=== PATIENT | female | born 1945 | race Caucasian/White ===

== ENCOUNTER 2017-01-24 12:55 | Emergency (ER) | payer OTHER ==
--- NOTE | 2017-01-24 13:13 | PDOC ---
Attending Attestation - Resident Resident Name: Katerin Bowers - ED Attending Attestation I have performed the following: I have examined & evaluated the patient, The case was reviewed & discussed with the resident, I agree w/resident's findings & plan, Exceptions are as noted - HPI HPI: 01/24/17 14:29 71y F hx of breast ca s/p mastectomy, hx of hernia repair s/p mesh removal 10 days ago presents with wound dehisence starting approx 5 days ago - pt endorses some serosangeonous discharge, denies purulence, fever, chills, abd pain, vomiting, nausea. pt had d/w [employer] CLAIM[employer] EXAMINER at her surgical practice who said it didnt appear infected a few days ago, but pt prsented due to increasing dehicense. - Physicial Exam PE: 01/24/17 14:30 abdomen: large abd wound with epitheliaized borders, mild erythema on proximal/ medial border without significant induration or warmth, no pus visible. abd otherwise soft, nontender w/o rebound/guarding. +tenderness on lateral edge of wound (c/w since day of surgery) - Medical Decision Making 01/24/17 14:32 wound dehicsence no signfiicant infection mild erythema at borders - likely inflammatory rather than infecitious will ck labs wound culture sent will peter guerra regarding fu 01/24/17 15:22 labs unremarkble p requesting to leave will fu with dr. guerra and his office as outpatient discussed importance of following up with dr. guerra or his collegues return precautions were disucssed
--- NOTE | 2017-01-24 13:29 | PDOC ---
History of Present Illness - General Chief Complaint: Wound Stated Complaint: SURGICAL WOUND IS OPEN Time Seen by Provider: 01/24/17 12:56 History Source: Patient Exam Limitations: No Limitations - History of Present Illness Initial Comments: This is a 71 yo female with h/o wound-healing difficulty (required abdominal skin graft and hyperbaric therapy for chronic non-healing abdominal surgical incision decades ago. She is POD #10 from abdominal mesh removal and presents with wound dehiscence of her surgical incision, with increased tenderness and odorous/purulent drainage from the wound. The dissolvable sutures broke open about 7 days ago and the wound has been opening more since that time. The patient saw her primary care provider two days ago regarding these symptoms, and the provider called her surgeon who said that the patient can come to the city to see him on Wednesday if needed. The patient has not had fever, chills, nausea, vomiting, headache, dizziness/lightheadedness, chest pain, shortness of breath, or other recent symptoms. Past History - Past Medical History Allergies/Adverse Reactions: Allergies Allergy/AdvReac Type Severity Reaction Status Date / Time Penicillins Allergy Intermediate ORAL SORES Verified 01/24/17 13:00 cephalexin monohydrate Allergy Unknown Verified 01/24/17 13:00 [From Keflex] ciprofloxacin [From Cipro] Allergy Unknown Verified 01/24/17 13:00 ciprofloxacin HCl Allergy Unknown Verified 01/24/17 13:00 [From Cipro] lactose Allergy Unknown Verified 01/24/17 13:00 sulfamethoxazole Allergy Unknown Verified 01/24/17 14:41 [From Bactrim] trimethoprim [From Bactrim] Allergy Unknown Verified 01/24/17 14:41 aspirin AdvReac Intermediate BACK PAIN Verified 01/24/17 13:00 ibuprofen AdvReac Intermediate BACK PAIN Verified 01/24/17 13:00 NSAIDS (Non-Steroidal AdvReac Intermediate Verified 01/24/17 13:00 Anti-Inflamma Home Medications: Ambulatory Orders Atenolol [Tenormin] 50 mg PO 01/24/17 Desloratadine [Clarinex] 5 mg PO DAILY 01/24/17 Hydroxyzine HCl [Atarax -] 10 mg PO BID 01/24/17 Lansoprazole [Prevacid] 30 mg PO DAILY 01/24/17 Propylthiouracil 50 mg PO DAILY 01/24/17 Tramadol HCl [Ultram] 50 mg PO DAILY 01/24/17 Triamterene/Hydrochlorothiazid [Triamterene-Hctz 37.5-25 mg Tb] 1.5 each PO DAILY 01/24/17 Ubidecarenone/Vitamin E [Co Q-10 50 mg Softgel] 1 each PO DAILY 01/24/17 Review of Systems - Review of Systems Constitutional: No: Chills, Fever, Unexplained wgt Loss HEENTM: No: Nose Congestion, Throat Pain Respiratory: No: Cough, Shortness of Breath Cardiac (ROS): No: Chest Pain, Palpitations ABD/GI: Yes: Other (abdominal pain). No: Constipated, Diarrhea, Nausea, Vomiting : No: Burning, Dysuria Musculoskeletal: No: Back Pain, Neck Pain Integumentary: Yes: Other (open surgical wound with drainage). No: Bruising, Rash Neurological: No: Headache, Numbness, Tingling, Weakness, Dizziness Endocrine: No: Unexplained Weight Gain, Unexplained Weight Loss *Physical Exam - Physical Exam General Appearance: Yes: Nourished, Appropriately Dressed, Other (pleasant older woman with supportive at bedside, conversive and appropriately answering questions). No: Apparent Distress HEENT: positive: EOMI, Normal Voice, Hearing Grossly Normal. negative: Scleral Icterus (R), Scleral Icterus (L), Nasal Congestion Neck: positive: Trachea midline, Supple. negative: Tender, Rigid Respiratory/Chest: positive: Lungs Clear, Normal Breath Sounds. negative: Respiratory Distress, Crackles, Rhonchi, Stridor, Wheezing Cardiovascular: positive: Regular Rhythm, Regular Rate. negative: Murmur Gastrointestinal/Abdominal: positive: Normal Bowel Sounds, Tender (surrounding 7x4 cm dehiscent surgical wound just to the right of the umbilicus), Soft. negative: Organomegaly, Pulsatile Mass, Guarding Musculoskeletal: positive: Normal Inspection. negative: Decreased Range of Motion, Vertebral Tenderness Extremity: positive: Normal Capillary Refill, Normal Inspection, Normal Range of Motion. negative: Tender, Cyanosis Integumentary: positive: Normal Color, Dry, Warm, Other (7x4 cm full-thickness open dehiscent surgical wound with small amount of purulent drainage which is not malodorous, small amount of erythema surrounding wound edges). negative: Rash, Bruising Neurologic: positive: continuous improvement lead II-XII NML intact, Fully Oriented, Alert, Normal Mood/ Affect, Normal Response, Motor Strength 09/18 ED Treatment Course - LABORATORY CBC & Chemistry Diagram: 01/24/17 13:34 01/24/17 13:34 Medical Decision Making - Medical Decision Making 71 YOF with wound healing difficulties p/w dehiscent surgical wound from procedure 10 days ago. Now with reported yellow purulent malodorous drainage, increased wound tenderness. No fever, chills, nausea, lightheadedness, or other systemic signs. This is possibly a wound infection. The patient may have other chronic undiagnosed wound healing problems such as PVD or hypogammaglobulinemia. Ordered is wound culture, CBCD, CMP. 01/24/17 14:17 WBC not elevated, CBCD otherwise unremarkable. CMP without significant findings. Called to Dr. Tariq's clinic. *DC/Admit/Observation/Transfer Diagnosis at time of Disposition: Dehiscence of wound - Discharge Dispostion Disposition: HOME Condition at time of disposition: Good Admit: No - Patient Instructions Printed Discharge Instructions: DI for Wound Dehiscence Additional Instructions: You were seen today for your surgical wound opening up and for some drainage. We did some basic blood work which was normal. We also took a wound culture and the results will come back in the next day or two. We are getting in touch with your surgeon's office to let them know that you need to be seen early this week. Please call your surgeon's office tomorrow morning to set up an appointment. Return to the ED for any fever, chills, worsened pain, increased pus from the wound, or other new/worsening symptoms.
[2017-01-24 13:38] VITALS: BP 172/66; PULSE 79; TEMP 98.5; BMI 29.0
[2017-01-24 13:48] LABS: BASOPHIL 1.3 % (0-2.0); EOSINOPHIL 1.2 % (0-4.5); MCH 26.4 pg (25.7-33.7); MCHC 33.6 g/dl (32.0-36.0); MEAN CELL VOLUME 78.6 fl (80-96); MEAN PLT VOLUME 7.5 fl (7.5-11.1); NEUTROPHILS 60.9 % (42.8-82.8); PLATELET COUNT 272 K/MM3 (134-434); RDW 13.3 % (11.6-15.6); WHITE BLOOD COUNT 7.3 K/mm3 (4.0-10.8)
[2017-01-24 14:07] LABS: ALBUMIN 3.7 g/dl (3.5-5.0); ALK PHOS 75 U/L (32-92); ANION GAP 10 (8-16); BILIRUBIN,TOTAL 0.6 mg/dl (0.2-1.0); CALCIUM 11.1 mg/dl (8.4-10.2); CO2 27 mmol/L (22-28); CREATININE 0.7 mg/dl (0.6-1.3); GLUCOSE,RANDOM 97 mg/dl (74-106); SGOT/AST 22 U/L (10-42); SGPT/ALT 20 U/L (10-40); TOT PROT 7.5 g/dl (6.4-8.3)
== END 2017-01-24 15:03 | disposition home or self-care (01) ==
LOC: FER 12:55
DX: T81.31XA Disruption of external operation (surgical) wound, not elsewhere classified, initial encounter (principal); Y83.9 Surgical procedure, unspecified as the cause of abnormal reaction of the patient, or of later complication, without mention of misadventure at the time of the procedure; Z85.3 Personal history of malignant neoplasm of breast; Z90.10 Acquired absence of unspecified breast and nipple; Z88.0 Allergy status to penicillin; Z88.1 Allergy status to other antibiotic agents; Z88.6 Allergy status to analgesic agent
CPT/HCPCS: 36415; 80053; 85025; 87070; 87077; 87186; 87205; 99282-25